=== PATIENT | female | born 1955 | race Caucasian/White ===

== ENCOUNTER 2018-06-16 07:13 | Day surgery (SDC) ==
[2018-06-16] MEDS: BETADINE OPTH PREP OP PRN ×2 (07:35→08:37)
[2018-06-16] MEDS: TETRACAINE 0.5% UNIT-DOSE OP PRN ×2 (07:35→08:37)
[2018-06-16] MEDS: CYCLOGYL 2% OPTH OP PRN ×3 (07:36→07:46)
[2018-06-16] MEDS ORDERED: ZOFRAN 4 MG/2 ML IVP ONE (07:41)
[2018-06-16] MEDS ORDERED: LIDOCAINE 1% 20 ML MDV ID STA (07:41)
[2018-06-16] MEDS ORDERED: BRIMONIDINE TARTRATE 0.2% OPTH SOL OP PRN (07:41)
[2018-06-16 07:46] VITALS: TEMP 98.1
[2018-06-16] MEDS: LIDOCAINE 1%/PHENYLEPHRINE 1.5% BSS (SURGERY) INTRAOCULA ONE ×2 (08:40→08:48)
[2018-06-16] MEDS: DEX-MOXI-KETOR OPTH INJ 1/0.5/0.4 MG/ML IO ONE ×2 (08:40→08:48)
[2018-06-16] MEDS: BSS WITH EPINEPHRINE OP ONE ×2 (08:40→08:48)
[2018-06-16] MEDS ORDERED: VERSED ONE (08:46)
[2018-06-16] MEDS ORDERED: ZOFRAN 4 MG/2 ML ONE (08:46)
[2018-06-16] MEDS ORDERED: SUBLIMAZE ONE (08:46)
[2018-06-18 08:20] VITALS: BP 124/68
== END 2018-06-16 09:50 | disposition home or self-care (01) ==
LOC: SURG 07:13
PROVIDERS: ATTEND Ophthalmology
DX: H25.12 Age-related nuclear cataract, left eye (principal)

== ENCOUNTER 2018-06-30 06:49 | Day surgery (SDC) ==
[2018-06-30] MEDS: BETADINE OPTH PREP OP PRN ×2 (07:25→08:10)
[2018-06-30] MEDS: TETRACAINE 0.5% UNIT-DOSE OP PRN ×3 (07:25→08:31)
[2018-06-30] MEDS: CYCLOGYL 2% OPTH OP PRN ×3 (07:26→07:36)
[2018-06-30] MEDS ORDERED: LIDOCAINE 1% 20 ML MDV ID STA (07:28)
[2018-06-30] MEDS ORDERED: BRIMONIDINE TARTRATE 0.2% OPTH SOL OP PRN (07:28)
[2018-06-30] MEDS ORDERED: BSS WITH EPINEPHRINE OP ONE (07:28)
[2018-06-30] MEDS ORDERED: DEX-MOXI-KETOR OPTH INJ 1/0.5/0.4 MG/ML IO ONE (07:28)
[2018-06-30] MEDS ORDERED: LIDOCAINE 1%/PHENYLEPHRINE 1.5% BSS (SURGERY) INTRAOCULA ONE (07:28)
[2018-06-30] MEDS ORDERED: ZOFRAN 4 MG/2 ML IVP ONE (07:28)
[2018-06-30] MEDS ORDERED: SUBLIMAZE ONE (08:22)
[2018-06-30] MEDS ORDERED: VERSED ONE (08:22)
[2018-06-30] MEDS ORDERED: ZOFRAN 4 MG/2 ML ONE (08:22)
[2018-06-30] MEDS ORDERED: DIPRIVAN 20 ML VIAL IVP ONE (08:22)
[2018-06-30 09:45] VITALS: BP 154/77
[2018-06-30 12:30] VITALS: TEMP 98.4
== END 2018-06-30 09:20 | disposition home or self-care (01) ==
LOC: SURG 06:49
PROVIDERS: ATTEND Ophthalmology
DX: H25.11 Age-related nuclear cataract, right eye (principal)